=== PATIENT | female | born 1990 | race Two or more races ===

== ENCOUNTER 2023-11-17 23:53 | Emergency (ER) | payer MEDICAID ==
[~2023-11-17] VITALS: Ht 167.6 cm; Wt 64.0 kg
[~2023-11-17 23:53] MED LIST: ACET500T58 PO; AUG875T PO; CEPH500C PO; FLUO0.054 TOP; ZOFR4T PO
[2023-11-18] VITALS: BP 142/83; PULSE 95; RESP 20; O2SAT 99
[2023-11-18 00:50] LABS: Urine Bacteria None Seen /hpf (None Seen)
[2023-11-18 00:55] LABS: Urine Blood Negative /uL (Negative); Urine Clarity Clear (Clear); Urine Color Light-Yellow (Yellow); Urine Protein, UAD Negative (Negative); Urine Specific Gravity 1.016 (1.001-1.035); Urine Urobilinogen Normal (Negative); Urine WBC 7 /hpf (0 - 5); Urine pH 8.5 (5.0-9.0)
[2023-11-18 01:19] LABS: Basophils # (auto) 0 10 ^3/uL (0-0.2); Basophils % (auto) 0.5 % (0.0-2.0); Eosinophils # (auto) 0.1 10 ^3/uL (0-0.8); Eosinophils % (auto) 0.6 % (0.0-7.0); Hematocrit 35.7 % (36.0-46.0); Hemoglobin 12.2 g/dL (12.2-16.2); Lymphocytes % (auto) 30.3 % (10.0-50.0); Mean Corpuscular Hemoglobin 32.2 pg (28.0-32.0); Mean Corpuscular Hgb Conc. 34.2 g/dL (32.0-36.0); Mean Corpuscular Volume 94.1 fL (80.0-100.0); Monocytes # (auto) 0.8 10 ^3/uL (0-1.3); Monocytes % (auto) 8.2 % (0.0-12.0); Neutrophils # (auto) 5.9 10 ^3/uL (1.6-8.6); Neutrophils % (auto) 60.4 % (37.0-80.0); Red Blood Cells 3.79 10^6/uL (4.0-5.20); Red Cell Distribution Width 13.8 % (11.8-14.3); White Blood Cell 9.8 10^3/uL (4.4-10.8)
[2023-11-18 01:26] LABS: Alanine Aminotransferase 11 U/L (7-40); Albumin 3.7 g/dL (3.2-4.8); Alkaline Phosphatase 55 U/L (46-116); Anion Gap 5 (5-15); Aspartate Aminotransferase 11 U/L (13-40); BUN/Creatinine Ratio 11.6 (10.0-20.0); Blood Urea Nitrogen 8 mg/dL (9-23); Calcium 9.2 mg/dL (8.7-10.4); Carbon Dioxide 26 mmol/L (20-30); Chloride 105 mmol/L (98-107); Glucose 94 mg/dL (74-106); Potassium 3.9 mmol/L (3.5-5.1); Sodium 136 mmol/L (136-145)
[2023-11-18 01:27] LABS: Bilirubin, Total 0.4 mg/dL (0.2-1.0); Total Protein 6.6 g/dL (5.7-8.2)
[2023-11-18] MEDS ORDERED: METOCLOPRAMIDE HCL 10 MG TAB PO ONE (03:45)
[2023-11-18] MEDS ORDERED: ACETAMINOPHEN 500 MG TAB PO ONE (03:45)
[2023-11-18] MEDS ORDERED: NITROFURANTOIN 100 mg CAP PO ONE (03:45)
[2023-11-18] MEDS ORDERED: ACET-1304 PO (03:46)
[2023-11-18] MEDS ORDERED: METO-281 PO (03:46)
[2023-11-18] MEDS ORDERED: NITR-87 PO (03:46)
[2023-11-18] MEDS ORDERED: FAMO20TA10 PO (03:46)
== END 2023-11-18 04:56 | disposition home or self-care (01) ==
LOC: ER 23:53
DX: O26.891 Other specified pregnancy related conditions, first trimester (principal); Z3A.09 9 weeks gestation of pregnancy; R10.2 Pelvic and perineal pain
CPT/HCPCS: 36415; 76801; 80053; 81001; 84702; 85025